=== PATIENT | female | born 1985 | race African-American/Black ===

== ENCOUNTER 2019-09-14 10:21 | Outpatient (RCR) | payer OTHER, SELFPAY | END 2019-09-14 23:59 | disposition home or self-care (01) | LOC: ANHAUDIO 10:21 | DX: Z46.1 Encounter for fitting and adjustment of hearing aid (principal) | CPT/HCPCS: 99002; V5240 ==

== ENCOUNTER 2020-11-24 01:48 | Emergency (ER) | payer OTHER, SELFPAY ==
--- NOTE | ~2020-11-24 | XR_ITS ---
EXAMINATION: XR chest 2V 11/24/2020 03:11 INDICATION: Leukocytosis. PROCEDURE: PA and lateral views of the chest COMPARISON: No prior studies for comparison. FINDINGS: The lungs are clear. The cardiomediastinal silhouette is within normal limits. There are no pleural effusions. There is no pneumothorax suspected. IMPRESSION: 1: NO ACUTE CARDIOPULMONARY DISEASE. Reviewed, dictated and finalized at location A. SNATCHER
[2020-11-24 01:48] VITALS: BP 188/96; PULSE 103; RESP 16; TEMP 36.2; O2SAT 99
[2020-11-24 01:54] LABS: Glucose Point of Care 477 (65-105)
[2020-11-24 02:25] LABS: Basophils Absolute Auto 0.1 K/mm3 (0.0-0.1); Basophils Percent Auto 0.6 % (0.2-1.2); Eosinophils Absolute Auto 0.6 K/mm3 (0-0.3); Hemoglobin 15.1 g/dL (12.0-15.0); Immature Granulocyte Absolute 0.06 K/mm3 (0.00-0.031); Immature Granulocyte Percent A 0.4 % (0-0.5); Lymphocytes Absolute Auto 6.84 K/mm3 (0.9-3.2); Lymphocytes Percent Auto 50.3 % (18.3-44.2); Mean Corpuscular HGB Conc 33.6 g/dl (32-36); Mean Corpuscular Hemoglobin 27.7 pg (26-34); Mean Corpuscular Volume 82.6 fl (80-100); Monocytes Absolute Auto 0.8 K/mm3 (0.1-0.6); Monocytes Percent Auto 5.9 % (2.6-8.5); Neutrophils Absolute Auto 5.3 K/mm3 (1.3-6.7); Neutrophils Percent Auto 38.8 % (45.5-73.1); Platelet Count Result 393 k/mm3 (150-375); Red Blood Count 5.45 M/mm3 (4.2-5.4); Red Cell Distribution Width 13.5 % (11.5-14.5); White Blood Count 13.6 K/mm3 (4.5-10.0)
[2020-11-24] MEDS: SODIUM CHLORIDE 0.9% IV 1,000 ML 999 ML IV CONT ×2 (02:33→03:15)
[2020-11-24 02:38] LABS: Fractional Inspired Oxygen 21 %; HCO3 VBG 21.3 mEq/l (24.0-30.0); PO2 VBG 45.5 mmHg (35.0-45.0); pH VBG 7.414 (7.300-7.400)
[2020-11-24 02:39] LABS: Device ROOM AIR
[2020-11-24 02:40] LABS: Add Urine Microscopic? YES; Appearance Urine Clear (Clear); Bacteria Urine Trace /hpf; Bilirubin Urine Negative (Negative); Blood Urine Negative (Negative); Color Urine Yellow (Yellow); Glucose Urine UA 3+ mg/dL (Negative); Ketones Urine Trace mg/dL (Negative); Leukocyte Esterase Ur Trace LEU/UL (Negative); Mucus Urine Rare /lpf; Nitrate Urine Negative (Negative); Protein Urine 1+ mg/dL (Negative); Squamous Epithelial Cell Urine Many /hpf (Few); Urobilinogen Urine Negative mg/dL (<2.0)
[2020-11-24 02:42] LABS: Alanine Aminotransferase 20 U/L (4-35); Albumin Level 4.3 g/dL (3.5-5.1); Alkaline Phosphatase 69 U/L (38-126); Anion Gap 11 mmol/L (8-16); Aspartate Amino Transferase 35 U/L (14-36); Bilirubin,Total 0.6 mg/dL (0.2-1.3); Blood Urea Nitrogen 10 mg/dL (7-17); Calcium 9.2 mg/dL (8.4-10.2); Carbon Dioxide 23 mmol/L (22-30); Chloride 98 mmol/L (98-107); Estimated CRCL calculation 167 ml/min; Estimated Glomerular Filt Rate > 60; Glucose 399 mg/dL (65-105); Magnesium 1.6 mg/dL (1.6-2.3); Phosphorus 3.8 mg/dL (2.5-4.5); Potassium 4.5 mmol/L (3.4-5.0); Sodium 132 mmol/L (137-145)
[2020-11-24 02:43] LABS: Specific Grav Ur 1.032 (1.001-1.035)
--- NOTE | 2020-11-24 02:45 | ED.RECABL ---
HPI - Recheck/Abnormal Lab/Rx General Chief Complaint: Recheck/Abnormal Lab/Rx Stated Complaint: elevated BS Time Seen by Provider: 11/24/20 01:51 Source: patient Mode of arrival: ambulatory Limitations: no limitations History of Present Illness HPI narrative: This patient is a 35 year old female with history of DM who presents for evaluation of elevated blood sugar. Patient states tonight her blood sugar was 500 at home. She checks her BS every other day, and she states it is normal in 300s. She takes metformin and another unknown medication. She states she was started on a medication in addition to metformin 2 months, but she has not followed up with pcp since the change. She reports increased thirst and urination. She denies headache , dizziness, fever, chills, nasuea, vomiting or diarrhea. Related Data Home Medications Medication Instructions Recorded Confirmed acetaminophen 11/24/20 docusate sodium [DOK] PO 11/24/20 fenofibrate mg 11/24/20 furosemide 11/24/20 norethindrone (contraceptive) mg 11/24/20 paliperidone palm (3-month) mg IM 11/24/20 [Invega Trinza] sitagliptin [Januvia] mg 11/24/20 Allergies Allergy/AdvReac Type Severity Reaction Status Date / Time No Known Allergies Allergy Unverified 07/02/17 14:02 Review of Systems Review of Systems: All systems reviewed & are unremarkable except as noted in HPI and below Constitutional: Constitutional: Denies chills, Denies fatigue and Denies fever(s) Eyes: Eyes: Denies change in vision ENT: Denies nasal congestion and Denies sore throat Cardiovascular: Cardiovascular: Denies chest pain Respiratory: Respiratory: Denies cough and Denies dyspnea Gastrointestinal: Gastrointestinal: Denies abdominal pain, Denies nausea and Denies vomiting Genitourinary: Genitourinary: Denies hematuria [facility] Past Medical History Medical History (Updated 11/24/20 @ 05:43 by Chloe Go MD) DM (diabetes mellitus) Hypertension Surgical History Surgical History (Updated 11/24/20 @ 02:48 by Chloe Go MD) No pertinent past surgical history Social History Social History (Updated 11/24/20 @ 02:48 by Chloe Go MD) Smoking status: Never smoker Exam Const: General: no acute distress and alert Nutritional Appearance: obese Orientation/consciousness: patient oriented x3 HENMT: Other: alopecia along hairline Eyes: EOM: EOMs intact bilaterally Resp: Effort & Inspection: normal respiratory effort and no retractions Auscultation: clear to auscultation bilaterally Cardio: Rate: regular rate Rhythm: regular rhythm Heart sounds: no murmurs GI: GI Palp: Yes Soft to palpation, No Tenderness to palpation present (GI) and No Guarding due to palpation present (GI) Auscultation: normal bowel sounds Skin: General skin exam: normal color Rashes: no rashes Neuro: General: patient oriented x3, moves all extremities and CN's II-XI intact bilaterally Course Reevaluation(s) Reevaluation #1: PAtient has no complaints. She does not have DKA. I discussed with patient diet modifications and exercise. I also discussed that she will need to follow up with her doctor on wednesday for evaluation of medication addition. She had some wbc and leukocyte esterase in urine so will place on antibiotics. She likely has hemoconcentration Date: 11/24/20 Time: 05:39 Vital Signs Vital signs: Vital Signs Temperature 97.1 F L 11/24/20 01:48 Pulse Rate 103 H 11/24/20 01:48 Respiratory Rate 16 11/24/20 01:48 Blood Pressure 188/96 H 11/24/20 01:48 Pulse Oximetry 99 11/24/20 01:48 Temperature 98.0 F 11/24/20 05:48 Pulse Rate 98 11/24/20 05:48 Respiratory Rate 16 11/24/20 05:48 Blood Pressure 138/99 H 11/24/20 05:48 Pulse Oximetry 100 11/24/20 05:48 MDM - Recheck/Abnormal Lab/Rx Lab Data Attestation: I reviewed the patient's lab results. Result diagrams: 11/24/20 02:18 11/24/20
[2020-11-24 02:47] LABS: Anisocytosis 1+ (NORMAL); Atypical Lymphocytes Present; Platelet Estimate Adequate (Adequate)
[2020-11-24 02:50] LABS: Beta-Hydroxybutyrate/Acetoacetate 0.34 mmol/L (0.02-0.27)
[2020-11-24] MEDS: INSULIN HUMAN REGULAR (*BKC) 100 UNITS/ML 10 UNITS SUB-Q (03:14)
[2020-11-24 04:22] LABS: Glucose Point of Care 293 (65-105)
[2020-11-24 04:24] VITALS: BP 148/91; PULSE 72; RESP 18; O2SAT 99
[2020-11-24 04:31] VITALS: BP 152/106; PULSE 98; RESP 17; O2SAT 100
[2020-11-24 05:11] LABS: Glucose Point of Care 326 (65-105)
[2020-11-24 05:14] VITALS: BP 147/90; PULSE 101; RESP 16; O2SAT 99
[2020-11-24 05:48] VITALS: BP 138/99; PULSE 98; RESP 16; TEMP 36.7; O2SAT 100
== END 2020-11-24 05:49 | disposition home or self-care (01) ==
PROVIDERS: Emergency Provider General Practice
DX: E11.65 Type 2 diabetes mellitus with hyperglycemia (principal); N39.0 Urinary tract infection, site not specified; Z79.84 Long term (current) use of oral hypoglycemic drugs; I10 Essential (primary) hypertension
CPT/HCPCS: 36415; 71046; 80053; 81001; 81025; 82010; 82803; 82948; 83735; 84100; 85025; 96360; 96361; 99283; J1815; J7030

== ENCOUNTER 2021-02-15 19:29 | Emergency (ER) | payer OTHER, SELFPAY ==
--- NOTE | 2021-02-15 19:50 | PC.NURSE ---
pt left without being seen, no triage completed. pt did not want to wait
--- NOTE | 2021-02-15 20:03 | PC.NURSE ---
Patient left ED. Patient was seen walking to her car.
== END 2021-02-15 20:03 | disposition left against medical advice (07) ==
DX: Z53.21 Procedure and treatment not carried out due to patient leaving prior to being seen by health care provider (principal)
CPT/HCPCS: 99199

== ENCOUNTER 2021-03-09 18:49 | Emergency (ER) | payer OTHER, SELFPAY ==
[2021-03-09 18:46] VITALS: BP 147/104; PULSE 108; RESP 18; TEMP 36.8; O2SAT 96
[2021-03-09 18:56] LABS: Glucose Point of Care 425 (65-105)
--- NOTE | 2021-03-09 19:10 | ED.GENADULT ---
HPI - General Adult General Chief complaint: Recheck/Abnormal Lab/Rx Stated complaint: BS 492 Time Seen by Provider: 03/09/21 19:02 Source: RN notes reviewed History of Present Illness HPI narrative: Patient presents to emergency department from home for hyperglycemia. Patient states she has a history of diabetes mellitus and has been taking her medications as prescribed she states that she noted that her blood sugars were up around 500 today she came to the ED for further evaluation. Patient denies any recent illness denies any nausea vomiting abdominal pain or any other symptoms. Patient is on Januvia Related Data Home Medications Medication Instructions Recorded Confirmed fenofibrate mg 11/24/20 furosemide 11/24/20 sitagliptin [Januvia] mg 11/24/20 paliperidone palm (3-month) mg IM 03/09/21 [Invega Trinza] Allergies Allergy/AdvReac Type Severity Reaction Status Date / Time No Known Allergies Allergy Unverified 03/09/21 18:53 Review of Systems Review of Systems: Narrative: Gen.: Denies fevers or chills ENT: Denies congestion Respiratory: Denies shortness of breath or cough CV: Denies chest pain or palpitations GI: Denies abdominal pain nausea, emesis or diarrhea denies burning, urgency, frequency or hematuria Musculoskeletal: Denies back pain or muscle pain Neuro: Denies numbness, tingling, weakness or focal weakness Skin: Denies rash Endocrine: See HPI Except as documented, all other systems reviewed and negative [facility] Past Medical History Medical History DM (diabetes mellitus) Hypertension Surgical History Surgical History (Updated 11/24/20 @ 02:48 by Chloe Go MD) No pertinent past surgical history Social History Social History Smoking status: Never smoker Exam Narrative: Exam Narrative: APPEARANCE: No acute distress, nontoxic, resting in bed EYES: EOMI HEENT: Normocephalic, atraumatic, OMM RESPIRATORY: No respiratory distress Clear to auscultation bilaterally with no rhonchi wheezing or rales. CARDIOVASCULAR: Regular rate and rhythm without murmurs rubs or gallops. ABDOMINAL: Soft, nontender, nondistended, no rebound or guarding MUSCULOSKELETAl: Moves all extremities. No clubbing, cyanosis or edema. NEURO: Awake and alert. Following commands, speech normal, no focal deficits SKIN:: Warm, dry. No rashes lesions or abrasions PSYCHIATRIC: Normal affect/mood, Course Course Emergency Course: Patient states her blood sugar normally runs around 300. Discussed with her current blood sugar and need to call her PCP tomorrow as she is unable to her recall the name of the second medication she is on for blood sugars she had been on Metformin and Januvia but the Metformin causing Brazilian been stopped and the medication been started I cannot find his medication looking at her pharmacy list she will call and discuss with her PCP tomorrow Discussed with patient results of workup and diagnosis. Discussed need for follow-up with primary care, proper use of medication, and reasons to return to the emergency department. Patient understands and agrees to current treatment plan Vital Signs Vital signs: Vital Signs Temperature 98.2 F 03/09/21 18:46 Pulse Rate 108 H 03/09/21 18:46 Respiratory Rate 18 03/09/21 18:46 Blood Pressure 147/104 H 03/09/21 18:46 Pulse Oximetry 96 03/09/21 18:46 Temperature 98.2 F 03/09/21 18:46 Pulse Rate 98 03/09/21 19:50 Respiratory Rate 18 03/09/21 19:50 Blood Pressure 133/78 03/09/21 19:50 Pulse Oximetry 98 03/09/21 19:50 Medical Decision Making Vital Signs Vital Signs: Vital Signs Temperature 98.2 F 03/09/21 18:46 Pulse Rate 108 H 03/09/21 18:46 Respiratory Rate 18 03/09/21 18:46 Blood Pressure 147/104 H 03/09/21 18:46 Pulse Oximetry 96 03/09/21 18:46 Temperature 98.2 F 03/09/21 18:4
[2021-03-09 19:16] LABS: Add Urine Microscopic? YES; Appearance Urine Cloudy (Clear); Bacteria Urine Trace /hpf; Bilirubin Urine Negative (Negative); Blood Urine 2+ (Negative); Color Urine Straw (Yellow); Glucose Urine UA 3+ mg/dL (Negative); Ketones Urine Negative (Negative); Leukocyte Esterase Ur 1+ LEU/UL (Negative); Nitrate Urine Negative (Negative); Protein Urine Negative (Negative); Squamous Epithelial Cell Urine Moderate /hpf (Few); Urobilinogen Urine Negative mg/dL (<2.0)
[2021-03-09 19:17] LABS: Specific Grav Ur 1.032 (1.001-1.035)
[2021-03-09 19:29] LABS: Basophils Absolute Auto 0.1 K/mm3 (0.0-0.1); Basophils Percent Auto 0.6 % (0.2-1.2); Eosinophils Absolute Auto 0.4 K/mm3 (0-0.3); Eosinophils Percent Auto 4.4 % (0-4.4); Hematocrit 43.4 % (37.0-47.0); Immature Granulocyte Absolute 0.04 K/mm3 (0.00-0.031); Immature Granulocyte Percent A 0.5 % (0-0.5); Lymphocytes Absolute Auto 4.18 K/mm3 (0.9-3.2); Lymphocytes Percent Auto 47.6 % (18.3-44.2); Mean Corpuscular HGB Conc 32.3 g/dl (32-36); Mean Corpuscular Hemoglobin 27.2 pg (26-34); Mean Corpuscular Volume 84.4 fl (80-100); Monocytes Absolute Auto 0.5 K/mm3 (0.1-0.6); Monocytes Percent Auto 5.8 % (2.6-8.5); Neutrophils Absolute Auto 3.6 K/mm3 (1.3-6.7); Neutrophils Percent Auto 41.1 % (45.5-73.1); Platelet Count Result 323 k/mm3 (150-375); Red Blood Count 5.14 M/mm3 (4.2-5.4); White Blood Count 8.8 K/mm3 (4.5-10.0)
[2021-03-09 19:32] VITALS: BP 144/97; PULSE 109; RESP 18; O2SAT 96
[2021-03-09] MEDS: SODIUM CHLORIDE 0.9% IV 1,000 ML 999 ML IV CONT (19:33)
[2021-03-09 19:41] LABS: Albumin Level 4.2 g/dL (3.5-5.1); Alkaline Phosphatase 61 U/L (38-126); Anion Gap 10 mmol/L (8-16); Aspartate Amino Transferase 40 U/L (14-36); Bilirubin,Total 0.2 mg/dL (0.2-1.3); Blood Urea Nitrogen 9 mg/dL (7-17); Calcium 9.3 mg/dL (8.4-10.2); Carbon Dioxide 24 mmol/L (22-30); Chloride 102 mmol/L (98-107); Estimated CRCL calculation 160 ml/min; Estimated Glomerular Filt Rate > 60; Glucose 421 mg/dL (65-105); Potassium 4.4 mmol/L (3.4-5.0); Sodium 136 mmol/L (137-145)
[2021-03-09 19:46] LABS: Atypical Lymphocytes Present; Platelet Estimate Adequate (Adequate)
[2021-03-09 19:50] VITALS: BP 133/78; PULSE 98; RESP 18; O2SAT 98
[2021-03-09 20:03] LABS: Alanine Aminotransferase 19 U/L (4-35)
[2021-03-09 20:06] LABS: Glucose Point of Care 346 (65-105)
[2021-03-09] MEDS: INSULIN ASPART (*BKC) 100 UNITS/ML 6 UNITS SUB-Q (20:08)
[2021-03-09] MEDS: NITROFURANTOIN MONOHYD MACROCR 100 MG CAP PO (21:34)
[2021-03-09 21:35] VITALS: BP 138/72; PULSE 92; RESP 18; O2SAT 98
[2021-03-10 01:55] LABS: Glucose Point of Care 325 (65-105)
== END 2021-03-09 21:35 | disposition home or self-care (01) ==
PROVIDERS: Emergency Medicine; Emergency Provider Emergency Medicine
DX: E11.65 Type 2 diabetes mellitus with hyperglycemia (principal); N39.0 Urinary tract infection, site not specified; I10 Essential (primary) hypertension; Z79.84 Long term (current) use of oral hypoglycemic drugs
CPT/HCPCS: 36415; 80053; 81001; 81025; 82948; 85025; 87077; 87086; 87088; 96360; 99283; A9270; J1815; J7030

== ENCOUNTER 2021-05-10 01:56 | Emergency (ER) | payer OTHER, SELFPAY ==
[2021-05-10 02:09] VITALS: BP 169/95; PULSE 100; RESP 18; O2SAT 97
[2021-05-10 02:27] LABS: Add Urine Microscopic? YES; Appearance Urine Cloudy (Clear); Bacteria Urine Trace /hpf; Bilirubin Urine Negative (Negative); Blood Urine Negative (Negative); Calcium Oxalate Crystals Urine Present /hpf; Color Urine Yellow (Yellow); Glucose Urine UA 3+ mg/dL (Negative); Ketones Urine Trace mg/dL (Negative); Leukocyte Esterase Ur Trace LEU/UL (Negative); Mucus Urine Rare /lpf; Nitrate Urine Negative (Negative); Protein Urine Negative (Negative); RBC Urine 0-2 /hpf (0-2); Squamous Epithelial Cell Urine Many /hpf (Few)
[2021-05-10 02:28] LABS: Basophils Percent Auto 0.2 % (0.2-1.2); Eosinophils Absolute Auto 0.1 K/mm3 (0-0.3); Hematocrit 46.6 % (37.0-47.0); Hemoglobin 14.7 g/dL (12.0-15.0); Immature Granulocyte Absolute 0.04 K/mm3 (0.00-0.031); Immature Granulocyte Percent A 0.4 % (0-0.5); Lymphocytes Absolute Auto 5.07 K/mm3 (0.9-3.2); Lymphocytes Percent Auto 46.7 % (18.3-44.2); Mean Corpuscular HGB Conc 31.5 g/dl (32-36); Mean Corpuscular Hemoglobin 26.7 pg (26-34); Mean Corpuscular Volume 84.6 fl (80-100); Mean Platelet Volume 9.6 fl (7.4-10.4); Monocytes Absolute Auto 0.7 K/mm3 (0.1-0.6); Monocytes Percent Auto 6.2 % (2.6-8.5); Neutrophils Percent Auto 45.5 % (45.5-73.1); Platelet Count Result 347 k/mm3 (150-375); Red Blood Count 5.51 M/mm3 (4.2-5.4); Red Cell Distribution Width 13.9 % (11.5-14.5); White Blood Count 10.9 K/mm3 (4.5-10.0)
[2021-05-10 02:32] LABS: Specific Grav Ur 1.035 (1.001-1.035)
[2021-05-10 02:37] LABS: Alanine Aminotransferase 28 U/L (4-35); Albumin Level 4.5 g/dL (3.5-5.1); Alkaline Phosphatase 66 U/L (38-126); Anion Gap 13 mmol/L (8-16); Aspartate Amino Transferase 55 U/L (14-36); Bilirubin,Total 0.4 mg/dL (0.2-1.3); Blood Urea Nitrogen 10 mg/dL (7-17); Calcium 9.3 mg/dL (8.4-10.2); Carbon Dioxide 24 mmol/L (22-30); Chloride 101 mmol/L (98-107); Estimated CRCL calculation 172 ml/min; Estimated Glomerular Filt Rate > 60; Glucose 306 mg/dL (65-105); Lipase 359 U/L (23-300); Potassium 3.8 mmol/L (3.4-5.0); Sodium 138 mmol/L (137-145)
[2021-05-10] MEDS: ONDANSETRON INJ 4 MG/2 ML VIAL IV PUSH (02:54)
--- NOTE | 2021-05-10 03:28 | ED.ABDPAIN ---
HPI - Abdominal Pain General Chief Complaint: Abdominal Pain Stated Complaint: ABD pain Time Seen by Provider: 05/10/21 02:14 History of Present Illness HPI narrative: Patient is a 35-year-old female who presents ER with diffuse abdominal pain. Ongoing over the last 24 hours. Associated with nausea and vomiting as well as diarrhea. Has had 3 loose stools. No fevers or chills or sweats. No known sick contacts. No aggravating or alleviating cues. Related Data Home Medications Medication Instructions Recorded Confirmed fenofibrate mg 11/24/20 furosemide 11/24/20 sitagliptin [Januvia] mg 11/24/20 paliperidone palm (3-month) mg IM 03/09/21 [Invega Trinza] Allergies Allergy/AdvReac Type Severity Reaction Status Date / Time No Known Allergies Allergy Unverified 03/09/21 18:53 Review of Systems Review of Systems: All systems reviewed & are unremarkable except as noted in HPI and below Constitutional: Constitutional: Denies chills, Denies fever(s) and Denies weakness ENT: Denies nasal congestion and Denies sore throat Cardiovascular: Cardiovascular: Denies chest pain and Denies radiating jaw, neck or arm pain Respiratory: Respiratory: Denies cough and Denies dyspnea Gastrointestinal: Gastrointestinal: Reports abdominal pain, Reports diarrhea, Reports nausea and Reports vomiting Genitourinary: Genitourinary: Denies nocturia, Denies dysuria and Denies flank pain PMFSH Past Medical History Medical History (Updated 05/10/21 @ 03:34 by Reese Howe MD) Asthma DM (diabetes mellitus) Hypertension Surgical History Surgical History (Updated 11/24/20 @ 02:48 by Chloe Go MD) No pertinent past surgical history Social History Social History Smoking status: Never smoker Gender identity (if verbalized by the patient): Female Exam Narrative: Exam Narrative: GENERAL: Well-appearing, morbidly obese, and in no acute distress. HEAD: Normocephalic, atraumatic. ENT: Mucous membranes moist. CHEST: Clear to auscultation. No respiratory distress. HEART: Regular rate and rhythm. Normal peripheral pulses. ABDOMEN: Soft, nontender, nondistended. EXTREMITIES: Normal range of motion. No edema. SKIN: Warm, dry, no rash. NEURO: Alert and oriented x3. PSYCH: Normal mood and affect. Course Course Emergency Course: Patient informed of results. Discharge home. Feels improved with Zofran. Still having some mild cramping pain, will give bentyl. Vital Signs Vital signs: Vital Signs Pulse Rate 100 05/10/21 02:09 Respiratory Rate 18 05/10/21 02:09 Blood Pressure 169/95 H 05/10/21 02:09 Pulse Oximetry 97 05/10/21 02:09 Pulse Rate 100 05/10/21 02:09 Respiratory Rate 18 05/10/21 02:09 Blood Pressure 169/95 H 05/10/21 02:09 Pulse Oximetry 97 05/10/21 02:09 MDM - Abdominal Pain Lab Data Result diagrams: 05/10/21 02:20 05/10/21 02:20 Labs: Lab Results 05/10/21 05/10/21 05/10/21 Range/Units 02:12 02:20 02:20 WBC 10.9 H (4.5-10.0) K/mm3 RBC 5.51 H (4.2-5.4) M/mm3 Hgb 14.7 (12.0-15.0) g/dL Hct 46.6 (37.0-47.0) % MCV 84.6 (80-100) fl MCH 26.7 (26-34) pg MCHC 31.5 L (32-36) g/dl RDW 13.9 (11.5-14.5) % Plt Count 347 (150-375) k/mm3 MPV 9.6 (7.4-10.4) fl Immature Gran % (Auto) 0.4 (0-0.5) % Neut % (Auto) 45.5 (45.5-73.1) % Lymph % (Auto) 46.7 H (18.3-44.2) % [place] % (Auto) 6.2 (2.6-8.5) % Eos % (Auto) 1.0 (0-4.4) % Baso % (Auto) 0.2 (0.2-1.2) % Lymph # (Auto) 5.07 H (0.9-3.2) K/mm3 [place] # (Auto) 0.7 H (0.1-0.6) K/mm3 Eos # (Auto) 0.1 (0-0.3) K/mm3 Baso # (Auto) 0.0 (0.0-0.1) K/mm3 Abs Immat Gran (auto) 0.04 H (0.00-0.031) K/mm3 Absolute Neuts (auto) 5.0 (1.3-6.7) K/mm3 Absolute Nucleated RBC 0.0 (0.0-0.012) K/mm3 Nucleated RBC % 0.0 (0.0-0.2) % Sodium 1
[2021-05-10] MEDS: DICYCLOMINE HCL INJ 20 MG/2 ML VIAL IM (03:42)
[2021-05-10 03:47] VITALS: BP 128/77; PULSE 79; RESP 18; O2SAT 99
== END 2021-05-10 03:59 | disposition home or self-care (01) ==
PROVIDERS: Emergency Provider Emergency Medicine; PCP Internal Medicine Gastroenterology
DX: K52.9 Noninfective gastroenteritis and colitis, unspecified (principal); E11.9 Type 2 diabetes mellitus without complications; I10 Essential (primary) hypertension; J45.909 Unspecified asthma, uncomplicated
CPT/HCPCS: 36415; 80053; 81001; 81025; 83690; 85025; 96372; 96374; 99284; J0500; J2405

== ENCOUNTER 2021-12-10 10:00 | Outpatient (RCR) | payer OTHER, SELFPAY | END 2021-12-10 23:59 | disposition home or self-care (01) | LOC: ANHAUDIO 10:00 | PROVIDERS: PCP Internal Medicine Gastroenterology; Visit Provider Internal Medicine Gastroenterology | DX: Z46.1 Encounter for fitting and adjustment of hearing aid (principal) | CPT/HCPCS: 99199; V5014 ==

== ENCOUNTER 2022-06-29 14:22 | Outpatient (RCR) | payer OTHER, SELFPAY | END 2022-06-29 23:59 | disposition home or self-care (01) | LOC: ANHAUDIO 14:22 | PROVIDERS: PCP Internal Medicine Gastroenterology; Visit Provider Internal Medicine Gastroenterology | DX: Z46.1 Encounter for fitting and adjustment of hearing aid (principal) | CPT/HCPCS: 99199 ==

== ENCOUNTER 2022-07-07 21:39 | Emergency (ER) | payer OTHER, SELFPAY ==
--- NOTE | ~2022-07-07 | CT_ITS ---
EXAMINATION: CT abdomen pelvis w con DATE: 07/07/2022 23:09 INDICATION: Generalized abdominal pain. Vomiting and diarrhea. TECHNIQUE: Computed tomography (CT) of the abdomen and pelvis was performed with 100 mL Omnipaque 350 intravenous contrast. Automated exposure control and iterative reconstruction technique were employe d. The dose-length product was 1440.96 mGy-cm. COMPARISON: None. FINDINGS: The visualized portions of the lung bases demonstrate minimal atelectasis. No pleural effus ion. The heart size is normal. No pericardial effusion. The liver, gallbladder, spleen, pancreas, adr enal glands, and kidneys are normal. There is liquid stool in the colon correlating with the symptom of diarrhea. There are no dilated loops of bowel. The appendix is normal. There are no pathologically enlarged lymph nodes. There is no free intraperitoneal fluid. There is mild lumbar spondylosis. IMPRESSION: 1. No specific etiology for the patient's symptoms. Reviewed, dictated and finalized at location A.
[2022-07-07 21:56] VITALS: BP 118/75; PULSE 90; RESP 20; TEMP 36.8; O2SAT 100
[2022-07-07 22:04] VITALS: BP 120/86; PULSE 88; RESP 16; O2SAT 95
[2022-07-07 22:13] LABS: Alanine Aminotransferase 24 U/L (6-35); Albumin Level 4.5 g/dL (3.5-5.1); Alkaline Phosphatase 55 U/L (38-126); Anion Gap 15 mmol/L (8-16); Aspartate Amino Transferase 38 U/L (14-36); Bilirubin,Total 0.5 mg/dL (0.2-1.3); Blood Urea Nitrogen 13 mg/dL (7-17); Calcium 9.4 mg/dL (8.4-10.2); Carbon Dioxide 23 mmol/L (22-30); Chloride 102 mmol/L (98-107); Estimated Glomerular Filt Rate > 60; Glucose 169 mg/dL (65-110); Lipase 266 U/L (23-300); Potassium 4.2 mmol/L (3.4-5.0); Sodium 140 mmol/L (137-145)
[2022-07-07 22:18] VITALS: O2SAT 98
[2022-07-07 22:23] LABS: Basophils Percent Auto 0.2 % (0.2-1.2); Eosinophils Absolute Auto 0.3 K/mm3 (0-0.3); Eosinophils Percent Auto 2.1 % (0-4.4); Hematocrit 50.5 % (37.0-47.0); Hemoglobin 15.8 g/dL (12.0-15.0); Immature Granulocyte Absolute 0.03 K/mm3 (0.00-0.031); Immature Granulocyte Percent A 0.2 % (0-0.5); Lymphocytes Absolute Auto 5.67 K/mm3 (0.9-3.2); Lymphocytes Percent Auto 46.2 % (18.3-44.2); Mean Corpuscular HGB Conc 31.3 g/dl (32-36); Mean Corpuscular Volume 86.2 fl (80-100); Mean Platelet Volume 9.4 fl (7.4-10.4); Monocytes Absolute Auto 0.7 K/mm3 (0.1-0.6); Monocytes Percent Auto 5.9 % (2.6-8.5); Neutrophils Absolute Auto 5.6 K/mm3 (1.3-6.7); Neutrophils Percent Auto 45.4 % (45.5-73.1); Platelet Count Result 383 k/mm3 (150-375); Red Blood Count 5.86 M/mm3 (4.2-5.4); Red Cell Distribution Width 14.9 % (11.5-14.5); White Blood Count 12.3 K/mm3 (4.5-10.0)
[2022-07-07 22:25] LABS: Appearance Urine Cloudy (Clear); Bilirubin Urine 1+ (Negative); Blood Urine Trace-lysed (Negative); Glucose Urine UA 3+ mg/dL (Negative); Ketones Urine Trace mg/dL (Negative); Leukocyte Esterase Ur Negative LEU/UL (Negative); Nitrate Urine Negative (Negative); Protein Urine 3+ mg/dL (Negative); Specific Grav Ur >= 1.030 (1.001-1.035); Urobilinogen Urine 0.2 mg/dL (<2.0); pH Urine 5.5 (5.0-9.0)
[2022-07-07 22:34] LABS: Add Urine Microscopic? YES; Bacteria Urine 4+ /hpf; Color Urine Light Yellow (Yellow); Mucus Urine Heavy /lpf; RBC Urine 21-50 /hpf (0-2); Squamous Epithelial Cell Urine Many /hpf (Few); WBC Urine 21-30 /hpf
[2022-07-07 22:35] VITALS: O2SAT 97
--- NOTE | 2022-07-07 22:43 | ED.ABDPAIN ---
HPI - Abdominal Pain General Chief Complaint: Abdominal Pain Stated Complaint: ABD PAIN Time Seen by Provider: 07/07/22 21:54 Source: patient Mode of arrival: EMS Limitations: no limitations History of Present Illness HPI narrative: Patient is a 37-year-old female who presents the ED via EMS with report of upper abdominal pain. Patient reports having pain in her mid upper abdomen/right upper quadrant for the past 2 days, which became worse today. She also reports having nausea and vomiting. Recent constipation, but did have a bowel movement yesterday with diarrhea today. No rectal bleeding. No fever. No urinary symptoms. Patient took Tylenol prior to arrival without much relief. Related Data Home Medications Medication Instructions Recorded Confirmed fenofibrate 160 mg tablet mg 11/24/20 furosemide 20 mg tablet 11/24/20 sitagliptin 100 mg tablet (Januvia) mg 11/24/20 paliperidone palm (3-month) 819 mg IM 03/09/21 mg/2.63 mL intramuscular syringe (Invega Trinza) Allergies Allergy/AdvReac Type Severity Reaction Status Date / Time No Known Allergies Allergy Unverified 03/09/21 18:53 Review of Systems Review of Systems: CONSTITUTIONAL: Denies fever, chills, or sweats. CARDIOVASCULAR: Denies chest pain. RESPIRATORY: Denies dyspnea. GASTROINTESTINAL: Reports epigastric/RUQ pain, N/V/D, recent constipation. Denies rectal bleeding. GENITOURINARY: Denies dysuria or hematuria. All systems reviewed & are unremarkable except as noted in HPI and below PMFSH Past Medical History Medical History Asthma DM (diabetes mellitus) Hypertension LILLIAN (obstructive sleep apnea) Surgical History Surgical History No pertinent past surgical history Social History Social History Smoking status: Never smoker Gender identity (if verbalized by the patient): Female Exam Narrative: GENERAL: Well appearing, morbidly obese, non-toxic, in no acute distress. HEAD: Normocephalic, atraumatic. NECK: Supple. No adenopathy, no masses. RESPIRATORY: Airway patent, respirations nonlabored. Clear to auscultation bilaterally, no rales, rhonchi, wheezing. CARDIOVASCULAR: Regular rate and rhythm without murmurs, rubs, or gallops. Peripheral pulses 2+ and equal bilaterally. ABDOMINAL: Soft, diffuse tenderness to palpation in upper abdomen, worse in epigastric region and RUQ. Nondistended, no hepatosplenomegaly. Normoactive BS. MUSCULOSKELETAL: Moves all extremities. Strength/ROM intact without gross deformities. SKIN: Warm, dry, normal color. No rashes. NEURO: A&O X3. Speech clear. Cranial nerves II-XII grossly intact. Steady gait. No ataxic movements. PSYCHIATRIC: Appropriate mood and affect. Normal interaction. Course Vital Signs Vital signs: Vital Signs Temperature 98.3 F 07/07/22 21:56 Pulse Rate 90 07/07/22 21:56 Respiratory Rate 20 07/07/22 21:56 Blood Pressure 118/75 07/07/22 21:56 Pulse Oximetry 100 07/07/22 21:56 Oxygen Delivery Room Air 07/07/22 21:56 Temperature 98.3 F 07/07/22 23:56 Pulse Rate 87 07/07/22 23:56 Respiratory Rate 16 07/07/22 22:53 Blood Pressure 109/93 H 07/08/22 00:01 Pulse Oximetry 92 07/08/22 00:15 Oxygen Delivery Room Air 07/07/22 21:56 MDM - Abdominal Pain MDM Narrative Medical decision making narrative: Patient presented to ED with 2-day history of upper abdominal pain. Vital signs stable upon arrival. Mild leukocytosis of 12.3. CMP fairly unremarkable aside from slightly elevated blood glucose at 169. Patient does have history of diabetes. Lipase normal. Remainder of labs consistent with patient's previous records. UA consistent with infection with 21-30 WBC, 4+ bacteria. Negative nitrates, negative leuks. Patient given dose of ceftriaxone in the ED. Keflex will
[2022-07-07 22:53] VITALS: BP 118/85; PULSE 86; RESP 16; TEMP 36.7; O2SAT 96
[2022-07-07 23:56] VITALS: BP 120/95; PULSE 87; TEMP 36.8
[2022-07-08 00:01] VITALS: BP 109/93
[2022-07-08 00:06] VITALS: O2SAT 97
[2022-07-08 00:15] VITALS: O2SAT 92
[2022-07-08] MEDS: DICYCLOMINE HCL 10 MG CAPSULE 20 MG PO (00:27)
[2022-07-08 00:58] VITALS: TEMP 36.8
== END 2022-07-08 00:58 | disposition home or self-care (01) ==
PROVIDERS: Emergency Provider Emergency Medicine; PCP Internal Medicine Gastroenterology
DX: N30.01 Acute cystitis with hematuria (principal); K52.9 Noninfective gastroenteritis and colitis, unspecified; J45.909 Unspecified asthma, uncomplicated; E11.9 Type 2 diabetes mellitus without complications; I10 Essential (primary) hypertension; G47.30 Sleep apnea, unspecified
CPT/HCPCS: 36415; 74177; 80053; 81001; 81025; 83690; 85025; 87086; 87088; 96365; 99284; A9270; J0131; J0696; Q9967

== ENCOUNTER 2022-11-18 11:36 | Outpatient (CLI) | payer OTHER, SELFPAY ==
[2022-11-18 12:15] LABS: Basophils Absolute Auto 0.1 K/mm3 (0.0-0.1); Basophils Percent Auto 0.5 % (0.2-1.2); Eosinophils Absolute Auto 0.4 K/mm3 (0-0.3); Eosinophils Percent Auto 4.1 % (0-4.4); Hematocrit 43.6 % (37.0-47.0); Hemoglobin 13.3 g/dL (12.0-15.0); Immature Granulocyte Absolute 0.04 K/mm3 (0.00-0.031); Immature Granulocyte Percent A 0.4 % (0-0.5); Lymphocytes Absolute Auto 4.76 K/mm3 (0.9-3.2); Lymphocytes Percent Auto 50.2 % (18.3-44.2); Mean Corpuscular HGB Conc 30.5 g/dl (32-36); Mean Corpuscular Hemoglobin 27.8 pg (26-34); Mean Corpuscular Volume 91.2 fl (80-100); Mean Platelet Volume 9.2 fl (7.4-10.4); Monocytes Absolute Auto 0.6 K/mm3 (0.1-0.6); Monocytes Percent Auto 6.5 % (2.6-8.5); Neutrophils Absolute Auto 3.6 K/mm3 (1.3-6.7); Neutrophils Percent Auto 38.3 % (45.5-73.1); Platelet Count Result 378 k/mm3 (150-375); Red Blood Count 4.78 M/mm3 (4.2-5.4); Red Cell Distribution Width 15.9 % (11.5-14.5); White Blood Count 9.5 K/mm3 (4.5-10.0)
[2022-11-18 12:25] LABS: Alanine Aminotransferase 22 U/L (6-35); Albumin Level 4.2 g/dL (3.5-5.1); Alkaline Phosphatase 43 U/L (38-126); Anion Gap 9 mmol/L (8-16); Aspartate Amino Transferase 28 U/L (14-36); Bilirubin,Total 0.3 mg/dL (0.2-1.3); Blood Urea Nitrogen 13 mg/dL (7-17); Calcium 8.9 mg/dL (8.4-10.2); Carbon Dioxide 25 mmol/L (22-30); Chloride 107 mmol/L (98-107); Cholesterol 193 mg/dL (0-200); Estimated Glomerular Filt Rate > 60; Glucose 118 mg/dL (65-110); HDL Direct 27 mg/dL; Potassium 4.4 mmol/L (3.4-5.0); Sodium 141 mmol/L (137-145); Triglycerides 373 mg/dL (<150)
[2022-11-18 12:36] LABS: LDL Cholesterol Direct 109 mg/dL
[2022-11-18 12:58] LABS: Vitamin D 25 Hydroxy 28.6 ng/mL
[2022-11-19 10:02] LABS: Hemoglobin A1C 6.8 % (<5.7)
== END 2022-11-18 11:37 | disposition home or self-care (01) ==
LOC: ANHLAB 11:37
PROVIDERS: PCP Internal Medicine; Visit Provider Clinical Nurse Specialist
DX: E11.9 Type 2 diabetes mellitus without complications (principal); I10 Essential (primary) hypertension; E55.9 Vitamin D deficiency, unspecified
CPT/HCPCS: 36415; 80053; 80061; 82306; 82607; 83036; 84443; 85025

== ENCOUNTER 2023-03-22 15:50 | Outpatient (CLI) | payer OTHER, SELFPAY ==
[2023-03-22 16:28] LABS: Alanine Aminotransferase 33 U/L (6-35); Albumin Level 4.6 g/dL (3.5-5.1); Alkaline Phosphatase 49 U/L (38-126); Anion Gap 13 mmol/L (8-16); Aspartate Amino Transferase 55 U/L (14-36); Bilirubin,Total 0.5 mg/dL (0.2-1.3); Blood Urea Nitrogen 17 mg/dL (7-17); Calcium 9.4 mg/dL (8.4-10.2); Carbon Dioxide 22 mmol/L (22-30); Chloride 99 mmol/L (98-107); Cholesterol 148 mg/dL (0-200); Estimated Glomerular Filt Rate > 60; Glucose 150 mg/dL (65-110); HDL Direct 31 mg/dL; Potassium 4.7 mmol/L (3.4-5.0); Sodium 134 mmol/L (137-145); Triglycerides 357 mg/dL (<150)
[2023-03-22 16:39] LABS: LDL Cholesterol Direct 76 mg/dL
[2023-03-22 19:37] LABS: Creatinine Urine 53.8 mg/dL
[2023-03-22 19:52] LABS: MALB Creatinine Ratio < 11.2 mg/g (0-30); Microalbumin Urine Random < 6.0 mg/L (0-16.7)
[2023-03-22 20:02] LABS: Free T4 Free Thyroxine 1.27 ng/mL (0.78-2.19)
[2023-03-22 23:17] LABS: Hemoglobin A1C 7.3 % (<5.7)
[2023-03-26 14:03] LABS: DHEA-Sulfate 55 mcg/dL (23-266); Insulin Level Total 34.5 uIU/mL (<=19.6)
[2023-03-27 15:17] LABS: Testosterone Free 1.7 pg/mL (0.1-6.4); Testosterone Total 13 ng/dL (2-45)
== END 2023-03-22 15:51 | disposition home or self-care (01) ==
LOC: ANHLAB 15:52
PROVIDERS: PCP Internal Medicine; Visit Provider Internal Medicine Endocrinology, Diabetes & Metabolism
DX: E11.9 Type 2 diabetes mellitus without complications (principal); E28.2 Polycystic ovarian syndrome; E78.2 Mixed hyperlipidemia
CPT/HCPCS: 36415; 80053; 80061; 82043; 82627; 83036; 83525; 84402; 84403; 84439; 84443

== ENCOUNTER 2023-05-05 14:05 | Outpatient (CLI) | payer OTHER, SELFPAY ==
[2023-05-05 17:09] LABS: Magnesium 2.1 mg/dL (1.6-2.3)
== END 2023-05-05 14:06 | disposition home or self-care (01) ==
PROVIDERS: PCP Internal Medicine; Visit Provider Internal Medicine Pulmonary Disease
DX: E53.8 Deficiency of other specified B group vitamins (principal); E83.42 Hypomagnesemia
CPT/HCPCS: 36415; 82607; 83735

== ENCOUNTER 2023-07-21 14:00 | Outpatient (CLI) | payer OTHER, SELFPAY ==
[2023-07-21 14:51] LABS: Basophils Absolute Auto 0.1 K/mm3 (0.0-0.1); Basophils Percent Auto 0.4 % (0.2-1.2); Eosinophils Absolute Auto 0.3 K/mm3 (0-0.3); Eosinophils Percent Auto 2.3 % (0-4.4); Hematocrit 43.6 % (37.0-47.0); Hemoglobin 13.8 g/dL (12.0-15.0); Immature Granulocyte Absolute 0.03 K/mm3 (0.00-0.031); Immature Granulocyte Percent A 0.2 % (0-0.5); Lymphocytes Absolute Auto 6.36 K/mm3 (0.9-3.2); Lymphocytes Percent Auto 49.6 % (18.3-44.2); Mean Corpuscular HGB Conc 31.7 g/dl (32-36); Mean Corpuscular Hemoglobin 27.5 pg (26-34); Mean Platelet Volume 9.6 fl (7.4-10.4); Monocytes Absolute Auto 0.9 K/mm3 (0.1-0.6); Monocytes Percent Auto 6.8 % (2.6-8.5); Neutrophils Absolute Auto 5.2 K/mm3 (1.3-6.7); Neutrophils Percent Auto 40.7 % (45.5-73.1); Platelet Count Result 344 k/mm3 (150-375); Red Blood Count 5.01 M/mm3 (4.2-5.4); Red Cell Distribution Width 15.1 % (11.5-14.5); White Blood Count 12.8 K/mm3 (4.5-10.0)
[2023-07-21 15:13] LABS: Alanine Aminotransferase 25 U/L (6-35); Albumin Level 4.4 g/dL (3.5-5.1); Alkaline Phosphatase 46 U/L (38-126); Anion Gap 13 mmol/L (8-16); Aspartate Amino Transferase 39 U/L (14-36); Bilirubin,Total 0.5 mg/dL (0.2-1.3); Blood Urea Nitrogen 16 mg/dL (7-17); Calcium 9.2 mg/dL (8.4-10.2); Carbon Dioxide 21 mmol/L (22-30); Chloride 99 mmol/L (98-107); Cholesterol 123 mg/dL (0-200); Estimated Glomerular Filt Rate > 60; Glucose 178 mg/dL (65-110); HDL Direct 28 mg/dL; Magnesium 1.7 mg/dL (1.6-2.3); Potassium 4.5 mmol/L (3.4-5.0); Sodium 133 mmol/L (137-145); Triglycerides 336 mg/dL (<150)
[2023-07-21 15:19] LABS: Hemoglobin A1C 7.5 % (<5.7)
[2023-07-21 15:24] LABS: LDL Cholesterol Direct 53 mg/dL
[2023-07-21 15:25] LABS: Free T4 Free Thyroxine 1.34 ng/mL (0.78-2.19)
[2023-07-21 15:39] LABS: MALB Creatinine Ratio 14.5 mg/g (0-30)
== END 2023-07-21 14:01 | disposition home or self-care (01) ==
PROVIDERS: Clinical Nurse Specialist; PCP Internal Medicine; Referring Provider Internal Medicine Endocrinology, Diabetes & Metabolism; Visit Provider Internal Medicine Pulmonary Disease
DX: E11.9 Type 2 diabetes mellitus without complications (principal); I10 Essential (primary) hypertension; E53.8 Deficiency of other specified B group vitamins; E83.42 Hypomagnesemia; E28.2 Polycystic ovarian syndrome; E78.2 Mixed hyperlipidemia; E66.01 Morbid (severe) obesity due to excess calories; Z68.44 Body mass index [BMI] 60.0-69.9, adult
CPT/HCPCS: 36415; 80053; 80061; 82043; 82607; 83036; 83735; 84439; 84443; 85025

== ENCOUNTER 2023-10-20 09:42 | Outpatient (CLI) | payer OTHER, SELFPAY ==
[2023-10-20 10:33] LABS: Anion Gap 14 mmol/L (8-16); Blood Urea Nitrogen 14 mg/dL (7-17); Calcium 9.2 mg/dL (8.4-10.2); Carbon Dioxide 22 mmol/L (22-30); Chloride 99 mmol/L (98-107); Estimated Glomerular Filt Rate > 60; Glucose 223 mg/dL (65-110); Potassium 4.4 mmol/L (3.4-5.0); Sodium 135 mmol/L (137-145)
[2023-10-20 10:55] LABS: Hemoglobin A1C 8.2 % (<5.7)
== END 2023-10-20 09:43 | disposition home or self-care (01) ==
LOC: ANHLAB 09:43
PROVIDERS: PCP Internal Medicine; Visit Provider Internal Medicine
DX: E87.1 Hypo-osmolality and hyponatremia (principal); E11.9 Type 2 diabetes mellitus without complications; I10 Essential (primary) hypertension
CPT/HCPCS: 36415; 80048; 83036

== ENCOUNTER 2023-11-18 13:04 | Outpatient (RCR) | payer OTHER, SELFPAY | END 2024-02-07 10:45 | disposition home or self-care (01) | LOC: ANHDMC 13:04 | PROVIDERS: PCP Internal Medicine; Visit Provider Internal Medicine | DX: E11.65 Type 2 diabetes mellitus with hyperglycemia (principal); E66.01 Morbid (severe) obesity due to excess calories; Z68.44 Body mass index [BMI] 60.0-69.9, adult; Z71.89 Other specified counseling | CPT/HCPCS: G0108 ==

== ENCOUNTER 2024-04-05 13:52 | Outpatient (CLI) | payer OTHER, SELFPAY ==
[2024-04-05 15:28] LABS: Cholesterol 106 mg/dL (0-200); HDL Direct 31 mg/dL; Triglycerides 400 mg/dL (<150)
[2024-04-05 15:46] LABS: LDL Cholesterol Direct 39 mg/dL
== END 2024-04-05 13:53 | disposition home or self-care (01) ==
PROVIDERS: PCP Internal Medicine; Visit Provider Internal Medicine Cardiovascular Disease
DX: R06.02 Shortness of breath (principal); R00.0 Tachycardia, unspecified; E11.9 Type 2 diabetes mellitus without complications; E78.5 Hyperlipidemia, unspecified; G47.33 Obstructive sleep apnea (adult) (pediatric); I10 Essential (primary) hypertension; F31.9 Bipolar disorder, unspecified; E66.9 Obesity, unspecified; Z68.44 Body mass index [BMI] 60.0-69.9, adult
CPT/HCPCS: 36415; 80061

== ENCOUNTER 2024-04-17 10:56 | Outpatient (CLI) | payer OTHER, SELFPAY ==
[2024-04-17 14:58] LABS: Hematocrit 44.7 % (37.0-47.0); Hemoglobin 13.7 g/dL (12.0-15.0); Mean Corpuscular HGB Conc 30.6 g/dl (32-36); Mean Corpuscular Volume 91.4 fl (80-100); Mean Platelet Volume 10.6 fl (7.4-10.4); Platelet Count Result 334 k/mm3 (150-375); Red Blood Count 4.89 M/mm3 (4.2-5.4); Red Cell Distribution Width 14.4 % (11.5-14.5); White Blood Count 11.8 K/mm3 (4.5-10.0)
[2024-04-17 16:51] LABS: Creatinine Urine 78.9 mg/dL
[2024-04-17 16:54] LABS: MALB Creatinine Ratio 32.1 mg/g (0-30); Microalbumin Urine Random 25.3 mg/L (0-16.7)
[2024-04-17 17:17] LABS: Alanine Aminotransferase 15 U/L (6-35); Albumin Level 4.3 g/dL (3.5-5.1); Alkaline Phosphatase 65 U/L (38-126); Anion Gap 17 mmol/L (4-12); Aspartate Amino Transferase 36 U/L (14-36); Bilirubin,Total 0.5 mg/dL (0.2-1.3); Blood Urea Nitrogen 15 mg/dL (7-17); Calcium 9.3 mg/dL (8.4-10.2); Carbon Dioxide 18 mmol/L (22-30); Chloride 102 mmol/L (98-107); Estimated Glomerular Filt Rate > 60; Glucose 270 mg/dL (65-110); Potassium 4.8 mmol/L (3.4-5.0); Sodium 137 mmol/L (137-145)
[2024-04-17 21:15] LABS: Hemoglobin A1C 7.9 % (<5.7)
== END 2024-04-17 10:57 | disposition home or self-care (01) ==
LOC: ANHGOSHLAB 10:58
PROVIDERS: PCP Internal Medicine; Visit Provider Internal Medicine
DX: E11.9 Type 2 diabetes mellitus without complications (principal); I10 Essential (primary) hypertension; E66.01 Morbid (severe) obesity due to excess calories; Z68.44 Body mass index [BMI] 60.0-69.9, adult; E87.1 Hypo-osmolality and hyponatremia; E03.9 Hypothyroidism, unspecified
CPT/HCPCS: 36415; 80053; 82043; 83036; 83735; 85027